=== PATIENT | male | born 1965 | race Two or more races ===

== ENCOUNTER → 2023-04-30 | Outpatient (CLI) | payer OTHER, MEDICAID | END | disposition home or self-care (01) | LOC: XYW 15:35 | PROVIDERS: ATTEND Student in an Organized Health Care Education/Training Program | DX: I51.89 Other ill-defined heart diseases (principal); R00.2 Palpitations; R07.89 Other chest pain | CPT/HCPCS: 93306 ==

== ENCOUNTER → 2023-09-10 | Outpatient (CLI) | payer OTHER, MEDICAID ==
[~2023-09-10] VITALS: Ht 182.9 cm; Wt 136.5 kg
[2023-09-10] MEDS: ADENOSINE 115 MG in GIVE UN-DILUTED 0 ML IV ONE (08:41)
== END | disposition home or self-care (01) ==
LOC: XYW 07:23
PROVIDERS: ATTEND Internal Medicine
DX: I25.9 Chronic ischemic heart disease, unspecified (principal); R00.2 Palpitations; R07.89 Other chest pain; I10 Essential (primary) hypertension; E78.5 Hyperlipidemia, unspecified; E66.01 Morbid (severe) obesity due to excess calories
CPT/HCPCS: 78452; 93017; A9500; J0153

== ENCOUNTER 2024-01-06 10:40 | Day surgery (SDC) | payer OTHER, MEDICAID ==
[2024-01-05 14:54] LABS: Basophils # (auto) 0.1 10 ^3/uL (0-0.2); Basophils % (auto) 0.9 % (0.0-2.0); Eosinophils # (auto) 0.3 10 ^3/uL (0-0.8); Eosinophils % (auto) 3.3 % (0.0-7.0); Hematocrit 44.8 % (41.0-53.0); Hemoglobin 15.3 g/dL (13.5-17.5); Lymphocytes # (auto) 2.5 10 ^3/uL (0.4-5.4); Lymphocytes % (auto) 27.7 % (10.0-50.0); Mean Corpuscular Hemoglobin 32.2 pg (28.0-32.0); Mean Corpuscular Hgb Conc. 34.2 g/dL (32.0-36.0); Mean Corpuscular Volume 94.1 fL (80.0-100.0); Monocytes # (auto) 0.8 10 ^3/uL (0-1.3); Neutrophils # (auto) 5.4 10 ^3/uL (1.6-8.6); Neutrophils % (auto) 59.1 % (37.0-80.0); Nucleated Red Blood Cells % 0.1 %; Red Blood Cells 4.76 10^6/uL (4.5-5.90); Red Cell Distribution Width 12.7 % (11.8-14.3); White Blood Cell 9.1 10^3/uL (4.4-10.8)
[2024-01-05 15:10] LABS: INR 1.08 (0.9-1.15); Partial Thromboplastin Time 26.6 SEC (24.5-34.5); Prothrombin Time 11.4 sec (9.3-11.8)
[2024-01-05 15:33] LABS: Alanine Aminotransferase 63 U/L (7-40); Albumin 4.4 g/dL (3.2-4.8); Alkaline Phosphatase 80 U/L (46-116); Anion Gap 5 (5-15); Aspartate Aminotransferase 30 U/L (13-40); BUN/Creatinine Ratio 12.2 (10.0-20.0); Blood Urea Nitrogen 11 mg/dL (9-23); Calcium 9.9 mg/dL (8.7-10.4); Carbon Dioxide 30 mmol/L (20-30); Chloride 103 mmol/L (98-107); Glucose 100 mg/dL (74-106); Sodium 138 mmol/L (136-145)
[2024-01-05 15:34] LABS: Bilirubin, Total 1.2 mg/dL (0.2-1.0); Total Protein 7.3 g/dL (5.7-8.2)
[~2024-01-06] VITALS: Ht 182.9 cm; Wt 138.3 kg
[2024-01-06] VITALS (7 sets, daily range): BP systolic 105–152; BP diastolic 64–95; PULSE 73–81; RESP 15–20; TEMP 97.8; O2SAT 93–97
[~2024-01-06 10:40] MED LIST: ATOR40TA52 PO; IBUP-1454 PO; LOSA-533 PO; OMEP-434 PO; TAMS-35 PO
[2024-01-06] MEDS ORDERED: HEPARIN SODIUM (PORCINE) 5000 UNITS/ML 1ML VIAL ONE (14:03)
[2024-01-06] MEDS ORDERED: ANGIOMAX 250 MG VIAL IV ONE (14:03)
[2024-01-06] MEDS ORDERED: SODIUM CHL 0.9% 0 ML ONE (14:04)
[2024-01-06] MEDS ORDERED: MIDAZOLAM HCL 2MG/2ML 2ml VIAL (1mg/ml) ONE (14:04)
[2024-01-06] MEDS ORDERED: fentaNYL CITRATE 100 MCG/2 ML VL ONE (14:04)
[2024-01-06] MEDS ORDERED: VERAPAMIL 2.5MG/ML INJ 2ML VIAL IV ONE (14:04)
[2024-01-06] MEDS ORDERED: LIDOCAINE 2%HCL (LOCAL ANESTH.) INJ 20ML MDV ONE (14:04)
== END 2024-01-06 16:35 | disposition home or self-care (01) ==
LOC: CATH 10:40
PROVIDERS: ATTEND Internal Medicine
DX: R94.39 Abnormal result of other cardiovascular function study (principal); I20.9 Angina pectoris, unspecified; Z79.01 Long term (current) use of anticoagulants; Z79.899 Other long term (current) drug therapy
CPT/HCPCS: 36415; 80053; 85025; 85610; 85730; 93458; C1887; C1894; J1644; J2250; J3010; Q9967; 99152

== ENCOUNTER → 2024-05-10 | Outpatient (CLI) | payer OTHER, MEDICAID ==
[2024-05-10 11:10] LABS: Urine Bacteria None Seen /hpf (None Seen)
[2024-05-10 11:41] LABS: Basophils # (auto) 0 10 ^3/uL (0-0.2); Basophils % (auto) 0.3 % (0.0-2.0); Eosinophils # (auto) 0.2 10 ^3/uL (0-0.8); Eosinophils % (auto) 2.8 % (0.0-7.0); Lymphocytes # (auto) 2.2 10 ^3/uL (0.4-5.4); Mean Corpuscular Hemoglobin 33.6 pg (28.0-32.0); Mean Corpuscular Hgb Conc. 35.5 g/dL (32.0-36.0); Mean Corpuscular Volume 94.6 fL (80.0-100.0); Monocytes # (auto) 0.6 10 ^3/uL (0-1.3); Monocytes % (auto) 8.5 % (0.0-12.0); Neutrophils # (auto) 4.4 10 ^3/uL (1.6-8.6); Neutrophils % (auto) 59.4 % (37.0-80.0); Nucleated Red Blood Cells % 0.1 %; Platelet Count (auto) 171 10^3/uL (140-450); Red Blood Cells 4.75 10^6/uL (4.5-5.90); Red Cell Distribution Width 12.9 % (11.8-14.3); White Blood Cell 7.5 10^3/uL (4.4-10.8)
[2024-05-10 11:55] LABS: Alanine Aminotransferase 55 U/L (7-40); Albumin 4.5 g/dL (3.2-4.8); Alkaline Phosphatase 73 U/L (46-116); Anion Gap 6 (5-15); Aspartate Aminotransferase 27 U/L (13-40); BUN/Creatinine Ratio 13.4 (10.0-20.0); Bilirubin, Total 2.1 mg/dL (0.2-1.0); Blood Urea Nitrogen 13 mg/dL (9-23); Calcium 9.9 mg/dL (8.7-10.4); Carbon Dioxide 29 mmol/L (20-31); Chloride 103 mmol/L (98-107); Cholesterol 124 mg/dL (< 200); Glucose 122 mg/dL (74-106); HDL Cholesterol 37 mg/dL (40-59); LDL Cholesterol 70 mg/dL (< 100); Magnesium 2.2 mg/dL (1.6-2.6); Sodium 138 mmol/L (136-145); Total Protein 7.3 g/dL (5.7-8.2); Triglycerides 121 mg/dL (< 150)
[2024-05-10 12:10] LABS: Folate (Folic Acid) 27.72 ng/mL (>5.38)
[2024-05-10 12:30] LABS: Urine Blood Negative /uL (Negative); Urine Clarity Clear (Clear); Urine Color Yellow (Yellow); Urine Mucus FEW (None Seen); Urine Protein, UAD Negative (Negative); Urine Specific Gravity 1.021 (1.001-1.035); Urine Urobilinogen Normal (Negative); Urine WBC 1 /hpf (0 - 3); Urine pH 6.5 (5.0-9.0)
== END | disposition home or self-care (01) ==
LOC: LAB 10:44
PROVIDERS: ATTEND Internal Medicine
DX: R73.03 Prediabetes (principal); K21.9 Gastro-esophageal reflux disease without esophagitis; M54.50 Low back pain, unspecified; K80.50 Calculus of bile duct without cholangitis or cholecystitis without obstruction
CPT/HCPCS: 36415; 80053; 80061; 81001; 82306; 82607; 82746; 83036; 83735; 84443; 84550; 85025; 87086

== ENCOUNTER 2024-05-11 15:42 | Emergency (ER) | payer OTHER, MEDICAID ==
[~2024-05-11] VITALS: Ht 182.9 cm; Wt 135.8 kg
[2024-05-11 18:54] LABS: Basophils # (auto) 0 10 ^3/uL (0-0.2); Basophils % (auto) 0.5 % (0.0-2.0); Eosinophils # (auto) 0.2 10 ^3/uL (0-0.8); Eosinophils % (auto) 1.9 % (0.0-7.0); Hematocrit 48.7 % (41.0-53.0); Hemoglobin 16.7 g/dL (13.5-17.5); Lymphocytes # (auto) 2.6 10 ^3/uL (0.4-5.4); Mean Corpuscular Hemoglobin 32.4 pg (28.0-32.0); Mean Corpuscular Hgb Conc. 34.4 g/dL (32.0-36.0); Mean Corpuscular Volume 94.2 fL (80.0-100.0); Monocytes # (auto) 0.7 10 ^3/uL (0-1.3); Monocytes % (auto) 7.6 % (0.0-12.0); Neutrophils # (auto) 5.4 10 ^3/uL (1.6-8.6); Nucleated Red Blood Cells % 0.1 %; Platelet Count (auto) 191 10^3/uL (140-450); Red Blood Cells 5.17 10^6/uL (4.5-5.90); Red Cell Distribution Width 12.8 % (11.8-14.3); White Blood Cell 8.9 10^3/uL (4.4-10.8)
[2024-05-11 19:07] LABS: Alanine Aminotransferase 63 U/L (7-40); Albumin 5.1 g/dL (3.2-4.8); Alkaline Phosphatase 81 U/L (46-116); Anion Gap 7 (5-15); Aspartate Aminotransferase 31 U/L (13-40); BUN/Creatinine Ratio 10.9 (10.0-20.0); Bilirubin, Total 1.6 mg/dL (0.2-1.0); Blood Urea Nitrogen 11 mg/dL (9-23); Calcium 10.3 mg/dL (8.7-10.4); Carbon Dioxide 29 mmol/L (20-31); Chloride 104 mmol/L (98-107); Lipase 33 U/L (12-53); Potassium 3.7 mmol/L (3.5-5.1); Sodium 140 mmol/L (136-145); Total Protein 8.2 g/dL (5.7-8.2)
[2024-05-11 19:27] LABS: Urine Bacteria None Seen /hpf (None Seen)
[2024-05-11 19:47] LABS: Urine Blood Negative /uL (Negative); Urine Clarity Clear (Clear); Urine Color Light-Yellow (Yellow); Urine Mucus FEW (None Seen); Urine Protein, UAD Negative (Negative); Urine Specific Gravity 1.015 (1.001-1.035); Urine Urobilinogen Normal (Negative); Urine WBC <1 /hpf (0 - 3); Urine pH 6.5 (5.0-9.0)
[2024-05-11 19:49] LABS: Glucose 108 mg/dL (74-106)
[2024-05-11] MEDS ORDERED: TAMS-35 PO (21:50)
[2024-05-11 23:26] VITALS: BP 119/82; PULSE 72; RESP 18; TEMP 98.5; O2SAT 95
== END 2024-05-11 23:31 | disposition home or self-care (01) ==
LOC: ER 15:46
DX: N20.0 Calculus of kidney (principal); M54.9 Dorsalgia, unspecified; Z79.899 Other long term (current) drug therapy
CPT/HCPCS: 36415; 74176; 80053; 81001; 83690; 85025

== ENCOUNTER → 2024-08-17 | Outpatient (CLI) | payer OTHER, MEDICAID ==
[2024-08-17 09:28] LABS: Urine Bacteria None Seen /hpf (None Seen)
[2024-08-17 09:37] LABS: Basophils # (auto) 0 10 ^3/uL (0-0.2); Basophils % (auto) 0.5 % (0.0-2.0); Eosinophils # (auto) 0.2 10 ^3/uL (0-0.8); Eosinophils % (auto) 2.3 % (0.0-7.0); Hematocrit 47.2 % (41.0-53.0); Lymphocytes # (auto) 2.1 10 ^3/uL (0.4-5.4); Lymphocytes % (auto) 28.1 % (10.0-50.0); Mean Corpuscular Hemoglobin 32.3 pg (28.0-32.0); Mean Corpuscular Hgb Conc. 33.9 g/dL (32.0-36.0); Mean Corpuscular Volume 95.2 fL (80.0-100.0); Monocytes # (auto) 0.7 10 ^3/uL (0-1.3); Monocytes % (auto) 8.7 % (0.0-12.0); Neutrophils # (auto) 4.5 10 ^3/uL (1.6-8.6); Neutrophils % (auto) 60.4 % (37.0-80.0); Platelet Count (auto) 168 10^3/uL (140-450); Red Blood Cells 4.95 10^6/uL (4.5-5.90); Red Cell Distribution Width 13.1 % (11.8-14.3); White Blood Cell 7.5 10^3/uL (4.4-10.8)
[2024-08-17 09:41] LABS: Urine Blood Negative /uL (Negative); Urine Clarity Clear (Clear); Urine Color Light-Yellow (Yellow); Urine Protein, UAD Negative (Negative); Urine Specific Gravity 1.015 (1.001-1.035); Urine Squamous Epithelial Cell FEW /hpf (<5); Urine Urobilinogen Normal (Negative); Urine WBC 1 /hpf (0 - 3)
[2024-08-17 10:04] LABS: Albumin 4.3 g/dL (3.2-4.8); Alkaline Phosphatase 78 U/L (46-116); Anion Gap 7 (5-15); Aspartate Aminotransferase 34 U/L (13-40); BUN/Creatinine Ratio 8.7 (10.0-20.0); Blood Urea Nitrogen 9 mg/dL (9-23); Calcium 10.2 mg/dL (8.7-10.4); Carbon Dioxide 30 mmol/L (20-31); Chloride 101 mmol/L (98-107); Cholesterol 133 mg/dL (< 200); LDL Cholesterol 76 mg/dL (< 100); Potassium 4.1 mmol/L (3.5-5.1); Sodium 138 mmol/L (136-145)
[2024-08-17 10:05] LABS: Total Protein 7.3 g/dL (5.7-8.2)
[2024-08-17 10:06] LABS: Alanine Aminotransferase 56 U/L (7-40); Bilirubin, Total 2.4 mg/dL (0.2-1.0); Glucose 131 mg/dL (74-106); HDL Cholesterol 39 mg/dL (40-59); Triglycerides 157 mg/dL (< 150)
== END | disposition home or self-care (01) ==
LOC: LAB 09:16
DX: E79.0 Hyperuricemia without signs of inflammatory arthritis and tophaceous disease (principal); D51.9 Vitamin B12 deficiency anemia, unspecified; E61.2 Magnesium deficiency; E55.9 Vitamin D deficiency, unspecified; R94.4 Abnormal results of kidney function studies; R68.89 Other general symptoms and signs; R73.09 Other abnormal glucose; R82.90 Unspecified abnormal findings in urine
CPT/HCPCS: 36415; 80053; 80061; 81001; 82306; 82746; 83036; 84443; 85025; 87086

== ENCOUNTER → 2024-09-29 | Day surgery (SDC) | payer OTHER, MEDICAID ==
[2024-09-28 11:18] LABS: Urine Bacteria None Seen /hpf (None Seen)
[2024-09-28 11:22] LABS: Basophils # (auto) 0.1 10 ^3/uL (0-0.2); Basophils % (auto) 0.7 % (0.0-2.0); Eosinophils # (auto) 0.1 10 ^3/uL (0-0.8); Eosinophils % (auto) 1.5 % (0.0-7.0); Hematocrit 47.7 % (41.0-53.0); Hemoglobin 15.9 g/dL (13.5-17.5); Lymphocytes % (auto) 22.9 % (10.0-50.0); Mean Corpuscular Hemoglobin 31.5 pg (28.0-32.0); Mean Corpuscular Hgb Conc. 33.4 g/dL (32.0-36.0); Mean Corpuscular Volume 94.6 fL (80.0-100.0); Monocytes # (auto) 0.6 10 ^3/uL (0-1.3); Monocytes % (auto) 7.4 % (0.0-12.0); Neutrophils # (auto) 5.8 10 ^3/uL (1.6-8.6); Neutrophils % (auto) 67.5 % (37.0-80.0); Nucleated Red Blood Cells % 0.1 %; Platelet Count (auto) 179 10^3/uL (140-450); Red Blood Cells 5.05 10^6/uL (4.5-5.90); Red Cell Distribution Width 12.8 % (11.8-14.3); White Blood Cell 8.6 10^3/uL (4.4-10.8)
[2024-09-28 11:38] LABS: INR 1.04 (0.9-1.15); Partial Thromboplastin Time 26.5 SEC (24.5-34.5)
[2024-09-28 11:42] LABS: Urine Blood Negative /uL (Negative); Urine Clarity Clear (Clear); Urine Color Light-Yellow (Yellow); Urine Protein, UAD Negative (Negative); Urine Specific Gravity 1.019 (1.001-1.035); Urine Squamous Epithelial Cell FEW /hpf (<5); Urine Urobilinogen Normal (Negative); Urine WBC 1 /HPF (0-3); Urine pH 6.5 (5.0-9.0)
[2024-09-28 11:49] LABS: Alkaline Phosphatase 84 U/L (46-116); Anion Gap 7 (5-15); Aspartate Aminotransferase 25 U/L (13-40); BUN/Creatinine Ratio 13.8 (10.0-20.0); Blood Urea Nitrogen 13 mg/dL (9-23); Carbon Dioxide 29 mmol/L (20-31); Chloride 103 mmol/L (98-107); Potassium 3.9 mmol/L (3.5-5.1); Sodium 139 mmol/L (136-145)
[2024-09-28 11:50] LABS: Total Protein 7.6 g/dL (5.7-8.2)
[2024-09-28 11:57] LABS: Alanine Aminotransferase 50 U/L (7-40); Albumin 4.9 g/dL (3.2-4.8); Bilirubin, Total 1.3 mg/dL (0.2-1.0); Glucose 125 mg/dL (74-106)
[~2024-09-29] VITALS: Ht 185.4 cm; Wt 137.0 kg
[~2024-09-29] MED LIST changes: +ACETAMINOPHEN IV 1000 MG/100ML (10MG/ML) IV PRN; +CIPR500T4 PO; +DICY-89 PO; +DexAMETHasone SOD PHOS 10MG/1ML VIAL INJ ONE; +HYDROmorphone HCL 2 MG/ML VL/or syr IV PRN; +MEPERIDINE HCL (25 MG/ML) 1ML VIAL IV PRN; +ONDANSETRON HCL 4 MG/2 ML VIAL IV ONE; +ONDANSETRON HCL 4 MG/2 ML VIAL ONE; +PROPOFOL 10 MG/ML 20 ML IV ONE; +ePHEDrine SULFATE 50 MG/ML AMP ONE; +fentaNYL CITRATE 100 MCG/2 ML VL ONE
[2024-09-29] MEDS: CIPROFLOXACIN 400MG/200ML 200 ML IV ONE (12:41)
[2024-09-29 13:05] VITALS: PULSE 82; RESP 12; TEMP 98.3; O2SAT 98
--- NOTE | 2024-09-29 13:21 | DVHDS2 ---
New Physician D'charge PN Admitting Diagnosis Admitting Diagnosis Right renal calculi Discharge Diagnosis Same Operations or Procedures Extracorporeal shockwave lithotripsy Reason(s) For Hospitalization Surgery Treatment Plan Discharge Condition of Discharge Fair Disposition Home Discharge Instructions Diet: Regular Activity: Light activity Activity comment: As tolerated Medications: Given Follow Up Care Follow Up/Referral: Two weeks with [facility] Discharge Statement: "Patient was advised to return to the ER or call 911 if any headaches, di zziness, shortness of breath, chest pain, abdominal pain, bleeding, fevers, or worsening of medical condition. Patient was counseled about treatment plan, medications, possible side effects, patientverbalized understanding. All questions were answered to the best of my ability. This discharge took greater then 30 minutes in planning, reviewing documentation, counseling the patient, and discussing with other team members." PHAN FARFAN MD Sep 29, 2024 13:21
[2024-09-29 13:50] VITALS: BP 130/75; PULSE 66; RESP 17; O2SAT 96
== END | disposition home or self-care (01) ==
LOC: SUR 11:02
PROVIDERS: ATTEND Urology
DX: N20.0 Calculus of kidney (principal); E78.00 Pure hypercholesterolemia, unspecified; Z96.653 Presence of artificial knee joint, bilateral; Z98.890 Other specified postprocedural states
CPT/HCPCS: 36415; 50590; 80053; 81001; 85025; 85610; 85730; 87086; J0744; J1100; J2405; J2704; J3010

== ENCOUNTER 2025-01-11 09:04 | Outpatient (CLI) | payer MEDICAID ==
[~2025-01-11 09:04] MED LIST changes: -ACETAMINOPHEN IV 1000 MG/100ML (10MG/ML) IV PRN; -DexAMETHasone SOD PHOS 10MG/1ML VIAL INJ ONE; -HYDROmorphone HCL 2 MG/ML VL/or syr IV PRN; -MEPERIDINE HCL (25 MG/ML) 1ML VIAL IV PRN; -ONDANSETRON HCL 4 MG/2 ML VIAL IV ONE; -ONDANSETRON HCL 4 MG/2 ML VIAL ONE; -PROPOFOL 10 MG/ML 20 ML IV ONE; -ePHEDrine SULFATE 50 MG/ML AMP ONE; -fentaNYL CITRATE 100 MCG/2 ML VL ONE
[2025-01-11 09:39] LABS: Urine Bacteria None Seen /hpf (None Seen)
[2025-01-11 09:54] LABS: Urine Blood Negative /uL (Negative); Urine Clarity Clear (Clear); Urine Color Yellow (Yellow); Urine Mucus FEW (None Seen); Urine Protein, UAD TRACE (Negative); Urine Specific Gravity 1.025 (1.001-1.035); Urine Squamous Epithelial Cell FEW /hpf (<5); Urine Urobilinogen Normal (Negative); Urine WBC 2 /HPF (0-3)
[2025-01-11 10:11] LABS: Albumin 4.3 g/dL (3.2-4.8); Alkaline Phosphatase 68 U/L (46-116); Anion Gap 8 (5-15); Aspartate Aminotransferase 37 U/L (13-40); Blood Urea Nitrogen 13 mg/dL (9-23); Calcium 9.7 mg/dL (8.7-10.4); Carbon Dioxide 27 mmol/L (20-31); Chloride 107 mmol/L (98-107); Cholesterol 106 mg/dL (< 200); Glucose 103 mg/dL (74-106); Potassium 4.1 mmol/L (3.5-5.1); Sodium 142 mmol/L (136-145); Total Protein 6.9 g/dL (5.7-8.2)
[2025-01-11 10:12] LABS: Alanine Aminotransferase 50 U/L (7-40); Bilirubin, Total 2.4 mg/dL (0.2-1.0); HDL Cholesterol 33 mg/dL (40-59); Triglycerides 157 mg/dL (< 150)
[2025-01-11 10:13] LABS: Basophils # (auto) 0 10 ^3/uL (0-0.2); Basophils % (auto) 0.5 % (0.0-2.0); Eosinophils # (auto) 0.1 10 ^3/uL (0-0.8); Eosinophils % (auto) 1.4 % (0.0-7.0); Hematocrit 43.6 % (41.0-53.0); Hemoglobin 14.6 g/dL (13.5-17.5); Lymphocytes # (auto) 1.9 10 ^3/uL (0.4-5.4); Lymphocytes % (auto) 28.3 % (10.0-50.0); Mean Corpuscular Hemoglobin 31.8 pg (28.0-32.0); Mean Corpuscular Hgb Conc. 33.6 g/dL (32.0-36.0); Mean Corpuscular Volume 94.7 fL (80.0-100.0); Monocytes # (auto) 0.8 10 ^3/uL (0-1.3); Monocytes % (auto) 11.1 % (0.0-12.0); Neutrophils % (auto) 58.7 % (37.0-80.0); Nucleated Red Blood Cells % 0.2 %; Platelet Count (auto) 161 10^3/uL (140-450); Red Cell Distribution Width 12.9 % (11.8-14.3); White Blood Cell 6.8 10^3/uL (4.4-10.8)
[2025-01-11 10:17] LABS: Folate (Folic Acid) 9.44 ng/mL (>5.38); LDL Cholesterol 48 mg/dL (< 100)
[2025-01-11 11:03] LABS: Uric Acid 7.7 mg/dL (3.7-9.2)
== END 2025-01-11 17:00 | disposition home or self-care (01) ==
LOC: LAB 09:04
PROVIDERS: ATTEND Internal Medicine
DX: E78.49 Other hyperlipidemia (principal); E61.2 Magnesium deficiency; R68.89 Other general symptoms and signs; E11.9 Type 2 diabetes mellitus without complications; R94.6 Abnormal results of thyroid function studies; E79.0 Hyperuricemia without signs of inflammatory arthritis and tophaceous disease; R82.998 Other abnormal findings in urine; E55.9 Vitamin D deficiency, unspecified; R82.90 Unspecified abnormal findings in urine; R82.79 Other abnormal findings on microbiological examination of urine; D51.9 Vitamin B12 deficiency anemia, unspecified
CPT/HCPCS: 36415; 80053; 80061; 81001; 82306; 82607; 82746; 83036; 84443; 84550; 85025; 87086

== ENCOUNTER → 2025-01-20 | Day surgery (SDC) | payer MEDICAID ==
[2025-01-13 10:37] LABS: Basophils # (auto) 0 10 ^3/uL (0-0.2); Basophils % (auto) 0.4 % (0.0-2.0); Eosinophils # (auto) 0.1 10 ^3/uL (0-0.8); Eosinophils % (auto) 1.3 % (0.0-7.0); Hematocrit 41.9 % (41.0-53.0); Hemoglobin 14.3 g/dL (13.5-17.5); Lymphocytes # (auto) 1.6 10 ^3/uL (0.4-5.4); Lymphocytes % (auto) 29.4 % (10.0-50.0); Mean Corpuscular Hemoglobin 32.6 pg (28.0-32.0); Mean Corpuscular Hgb Conc. 34.2 g/dL (32.0-36.0); Mean Corpuscular Volume 95.3 fL (80.0-100.0); Monocytes # (auto) 0.5 10 ^3/uL (0-1.3); Monocytes % (auto) 8.4 % (0.0-12.0); Neutrophils # (auto) 3.4 10 ^3/uL (1.6-8.6); Neutrophils % (auto) 60.5 % (37.0-80.0); Nucleated Red Blood Cells % 0.1 %; Platelet Count (auto) 153 10^3/uL (140-450); White Blood Cell 5.6 10^3/uL (4.4-10.8)
[2025-01-13 10:50] LABS: INR 1.06 (0.9-1.15); Partial Thromboplastin Time 26.9 SEC (24.5-34.5); Prothrombin Time 11.2 sec (9.3-11.8)
[2025-01-13 11:24] LABS: Albumin 4.2 g/dL (3.2-4.8); Alkaline Phosphatase 67 U/L (46-116); Anion Gap 7 (5-15); Aspartate Aminotransferase 36 U/L (13-40); BUN/Creatinine Ratio 11.2 (10.0-20.0); Blood Urea Nitrogen 11 mg/dL (9-23); Calcium 9.3 mg/dL (8.7-10.4); Carbon Dioxide 30 mmol/L (20-31); Chloride 104 mmol/L (98-107); Glucose 98 mg/dL (74-106); Sodium 141 mmol/L (136-145); Total Protein 6.8 g/dL (5.7-8.2)
[2025-01-13 11:25] LABS: Alanine Aminotransferase 52 U/L (7-40); Bilirubin, Total 1.7 mg/dL (0.2-1.0)
[~2025-01-20] VITALS: Ht 185.4 cm; Wt 140.2 kg
[~2025-01-20] MED LIST changes: +CALC1TAB92 PO; -CIPR500T4 PO; -DICY-89 PO; +MAGN400T40 OR; +MIDAZOLAM HCL 2MG/2ML 2ml VIAL (1mg/ml) ONE; +MIDAZOLAM HCL 5 MG/ML-1ML VIAL ONE; +OMEG1CAP87 PO; +PROPOFOL 10 MG/ML 20 ML IV ONE; +SEMA0.25 SC; +SODIUM CHLORIDE LOCK 10 ML ONE; +diphenhdrAMINE HCL 50 MG/1 ML VL ONE; +fentaNYL CITRATE 100 MCG/2 ML VL ONE
[2025-01-20] MEDS: LIDOCAINE VISCOUS 2% 15ML UD ONE (11:04)
[2025-01-20 11:10] VITALS: PULSE 79; RESP 14; TEMP 97.7; O2SAT 99
--- NOTE | 2025-01-20 11:21 | DVHOP2 ---
Operative Report DATE OF OPERATION: 01/20/25 PROCEDURE: Upper Endoscopy with biopsy. PREOPERATIVE INDICATION: The patient is a 59 -year-old male undergoing endoscopy for chronic epigastric pain and history of diaphragmatic hernia POSTOPERATIVE DIAGNOSES: 1. Patient had a 1 cm sliding-type hiatal hernia with slightly irregular squamocolumnar junction and no significant erosive esophagitis 2. Mild gastritis otherwise normal examination up to the 2nd and 3rd part of the duodenum PROCEDURE PERFORMED BY: Lauren Leonard GI NURSE: Suzanne SCOPE: Olympus videoendoscope. ASA CLASS: 3 PREOPERATIVE MEDICATIONS: Mac Dr. Jackelin zheng PROCEDURE IN DETAIL: After obtaining an informed consent, the patient was placed on left lateral decubitus position. The patient was then sedated with the above medications. A bite block was placed between his teeth. The endoscope was then passed through the oropharynx, into the esophagus, and through the stomach and pylorus up to the second and third part of the duodenum. The endoscope was then withdrawn. Second and 3rd part of the duodenum and the duodenal bulb were normal. Biopsies were obtained The pre-pyloric area antrum and body showed mild gastritis with hyperemia erythema. Gastric biopsies were obtained. On retroflexion the fundus cardia and angularis were normal. The endoscope was then withdrawn into the distal esophagus Patient had a 1 cm sliding-type hiatal hernia with slightly irregular squamocolumnar junction and no significant erosive esophagitis. GE junction biopsies were obtained. The remaining distal and proximal esophagus and oropharynx were unremarkable The patient tolerated the procedure well without difficulty. COMPLICATIONS : None SPECIMENS: Duodenal biopsies Gastric biopsies GE junction biopsies DISPOSITION: Stable D/C to home PLAN: 1. Await for biopsy result 2. Will place pt on Protonix 40 mg p.o. daily 3. Carafate 1 g p.o. q.h.s. 4. DC aspirin NSAIDs smoking alcohol 5. Lifestyle and dietary modifications for GERD 6. Resume soft mechanical diet advance as tolerated 7. Outpatient follow up with me in 4-6 weeks to review results and discuss further management LAUREN LEONARD MD Jan 20, 2025 11:21
[2025-01-20 11:25] VITALS: BP 133/84; PULSE 78; RESP 15; O2SAT 94
== END | disposition home or self-care (01) ==
LOC: GI 09:19
PROVIDERS: ATTEND Internal Medicine Gastroenterology
DX: R10.13 Epigastric pain (principal); K21.00 Gastro-esophageal reflux disease with esophagitis, without bleeding; K29.50 Unspecified chronic gastritis without bleeding; K44.9 Diaphragmatic hernia without obstruction or gangrene; G89.29 Other chronic pain; F17.200 Nicotine dependence, unspecified, uncomplicated; Z90.49 Acquired absence of other specified parts of digestive tract; Z98.890 Other specified postprocedural states
CPT/HCPCS: 36415; 43239; 80053; 82962; 85025; 85610; 85730; 88305; 88312; 88342; J1200; J2250; J2704; J3010; J7030

== ENCOUNTER 2025-03-29 16:00 | Emergency (ER) | payer MEDICAID ==
[~2025-03-29] VITALS: Ht 182.9 cm; Wt 133.0 kg
[~2025-03-29 16:00] MED LIST changes: -MIDAZOLAM HCL 2MG/2ML 2ml VIAL (1mg/ml) ONE; -MIDAZOLAM HCL 5 MG/ML-1ML VIAL ONE; -PROPOFOL 10 MG/ML 20 ML IV ONE; -SODIUM CHLORIDE LOCK 10 ML ONE; -diphenhdrAMINE HCL 50 MG/1 ML VL ONE; -fentaNYL CITRATE 100 MCG/2 ML VL ONE
[2025-03-29 16:03] VITALS: TEMP 98.2
--- NOTE | 2025-03-29 17:31 | ED.PDOC ---
Musculoskeletal HPI Comments A 59-YEAR-OLD MALE WITH NO SIGNIFICANT PMHX PRESENTS TO THE ED WITH A C/C OF LEFT LOWER BUTTOCK PAIN WITH ASSOCIATED NUMBNESS, TINGLING AND RADIATING LEFT LOWER EXTREMITY PAIN. PATIENT STATES THAT HIS SYMPTOMS HAVE BEEN ONSET FOR THE PAST 2 DAYS WITH NO ALLEVIATING FACTORS. PATIENT NOTES THAT HE WAS ADVISED TO PRESENT TO EMERGENCY DEPARTMENT FROM URGENT CARE FOR A BETTER EVALUATION. PATIENT DENIES ANY RECENT INJURY, BACK PAIN, ABNORMAL PHYSICAL ACTIVITY, OR ANY OTHER ASSOCIATED SYMPTOMS, MODIFIERS AT THIS TIME. PT IS ALERT, ORIENTATION X4 WITH NORMAL GAIT. Chief Complaint: Lower Extremity Time Seen by MD: 17:26 Primary Care Provider: HALINA Garcia Notes: Nurses Notes, Medications, Allergies Allergies: Coded Allergies: NO KNOWN ALLERGIES (Unverified , 09/10/23) Home Meds Reported Medications Semaglutide (Wegovy) 0.25 Mg/0.5 Ml Inj, 0.25 MG SC QWEEKLY, INJ 01/16/25 Magnesium Oxide (MAGNESIUM OXIDE) 400 Mg Tab, 400 MG OR DAILY, TAB 01/16/25 Calcium Carbonate (Calcium) 600 Mg Tab, 600 MG PO DAILY, TAB 01/16/25 [place]-3 Fatty Acids (Fish Oil 500 mg) 1 Cap Cap, 1 CAP PO DAILY, CAP 01/16/25 Omeprazole Magnesium (Omeprazole) 20 Mg Tab, 1 TAB PO DAILY PRN for GERD 01/05/24 Tamsulosin Hcl (Flomax) 0.4 Mg Cap, 1 CAP PO DAILY for BPH 01/05/24 Ibuprofen (Ibuprofen) 600 Mg Tab, 1 TAB PO TIDWM PRN for MODERATE PAIN (4-6 PAIN SCALE) 01/05/24 Losartan Potassium (Losartan Potassium) 25 Mg Tab, 1 TAB PO DAILY for HYPERTENSION 01/05/24 Atorvastatin Calcium (ATORVASTATIN CALCIUM) 40 Mg Tab, 1 TAB PO QPM for HIGH CHOLESTEROL 01/05/24 Information Source: Patient Mode of Arrival: Ambulatory Location: Left Extremity Location: Back, Hip, Thigh, Other (BUTTOCK) Timing: Days Prehospital treatment: None Severity: Moderate Able to Move Extremity: Yes Bear Weight: Fully Pain: Moderate Hand Dominance: Right Mechanism: None Circumstances: Spontaneous Onset of Symptoms: Spontaneous Symptoms: Pain DVT Risk Factors: NONE Last Tetanus: UTD, Unknown Associated signs and symptoms: None Past Medical History PAST MEDICAL HISTORY: HTN Surgical History: Denies all surgeries Family History Family History: Reviewed,noncontributory to illness Social History Smoker: Non-Smoker Alcohol: Denies ETOH Use Drugs: Denies Drug Use Lives In: Home Constitutional: denies: chills, diaphoresis, fatigue, fever, malaise, sweats, weakness, others EENTM: denies: blurred vision, double vision, ear bleeding, ear discharge, ear drainage, ear pain, ear ringing, eye pain, eye redness, hearing loss, mouth pain, mouth swelling, nasal discharge, nose bleeding, nose congestion, nose pain, photophobia, tearing, throat pain, throat swelling, voice changes, others Respiratory: denies: cough, hemoptysis, orthopnea, SOB at rest, shortness of breath, SOB with excertion, stridor, wheezing, others Cardiovascular: denies: chest pain, dizzy spells, diaphoresis, Dyspnea on exertion, edema, irregular heart beat, left arm pain, lightheadedness, palpitations, PND, syncope, others Gastrointestinal: denies: abdomen distended, abdominal pain, blood streaked bowels, constipated, diarrhea, dysphagia, difficulty swallowing, hematemesis, melena, nausea, poor appetite, poor fluid intake, rectal bleeding, rectal pain, vomiting, others Genitourinary: denies: burning, dysuria, flank pain, frequency, hematuria, incontinence, penile discharge, penile sore, pain, testicle pain, testicle swelling, urgency, others Neurological: denies: dizziness, fainting, headache, left sided numbness, left sided weakness, numbness, paresthesia, pre-existing deficit, right sided numbness, right sided weakness, seizure, speech problems, tingling, tremors, weakness, others Musculoskeletal: reports: back pain, muscle pain, others (LEFT GLUTE PAIN); denies: gout, joint pain, joint swelling, muscle stiffness, neck pain Integumetry: denies: bruises, change in color, change in hair/nails, dryness, laceration, lesions, lumps, rash, wounds, others Allergic/Immunocompromised: denies: Difficulty Healing, Frequent Infections, Hives, Itching, others Hematologic/Lymphatic: denies: anemia, blood clots, easy bleeding, easy bruising, swollen glands, others Endocrine: denies: excessive hunger, excessive sweating, excessive thirst, excessive urination, flushing, intolerance to cold, intolerance to heat, unexplained weight gain, unexplained weight loss, others Psychiatric: denies: anxiety, bipolar disorder, depression, hopeless, panic disorder, schizophrenia, sleepless, suicidal, others All Other Systems: Reviewed and Negative Physical Exam General Appearance: No Apparent Distress, Obese HEENT: Normal ENT Inspection, PERRL/EOMI, Pharynx Normal, TMs Normal Neck: Full Range of Motion, Non-Tender, Normal, Normal Inspection Respiratory: Chest Non-Tender, Lungs Clear, No Accessory Muscle Use, No Respiratory Distress, Normal Breath Sounds Cardiovascular: No Edema, No JVD, No Murmur, No Gallop, Normal Peripheral Pulses, Regular Rate/Rhythm Breast Exam: Deferred Gastrointestinal: No Organomegaly, Non Tender, No Pulsatile Mass, Normal Bowel Sounds, Soft Genitalia: Deferred Pelvic: Deferred Rectal: Deferred Extremities: No calf tenderness, Normal capillary refill, Normal inspection, Normal range of motion, Non-tender, No pedal edema Musculoskeletal : Location: Bilateral Extremity Location: Back, Hip, Thigh, Other (NO ERYTHEMA, SWELLING AND DVT SIGNS. ) Apperance: Tenderness: Moderate (TENDERNESS LOWER BACK, NO BONY TENDERNESS, SWELLING, REDNESS AND DEFORMORMITY. ) Neurologic: Alert, short story writer II-XII nml as Tested, No Motor Deficits, Normal Affect, Normal Mood, No Sensory Deficits Cerebellar Function: Normal Reflexes: Normal Skin: Dry, Normal Color, Warm Peripheral Pulses: 2+ carotid (R), 2+ carotid (L), 2+ dorsalis pedis (R), 2+ dorsalis pedis (L) Lymphatic: No Adenopathy Was a procedure done? Was a procedure done?: No Differential Diagnosis EXT Differential Diagnosis: Cellulitis, Fracture, Sprain, Strain, Bursitis, Other (DDD/DJD OF LOWER BACK ) X-Ray, Labs, Meds, VS Vital Signs Date Time Temp Pulse Resp B/P (MAP) Pulse Ox O2 Delivery O2 Flow Rate FiO2 03/29/25 16:03 98.2 89 18 145/77 98 98.2 Current Medications Medications (Trade) Dose Ordered Sig/Erin Route Start Time Stop Time Status Last Admin Ketorolac Tromethamine (Toradol Injection) 60 mg ONCE ONCE IM 03/29/25 17:30 03/29/25 17:31 DC 03/29/25 17:42 X-Ray, Labs, Meds, VS Comment EXTERNAL MEDICAL RECORDS REVIEWED: [NONE] INDEPENDENT HISTORIANS: [NONE] SOCIAL DETERMINANTS OF HEALTH: [NONE] LABS ORDERED: NONE REVIEWED AND INTERPRETED RESULTS: NONE IMAGING ORDERED: LUMBAR SPINE X-RAY:DDD/DJD OF LS-SPINE, READ BY ME, PENDING RADIOLOGIST READING. TREATMENTS ORDERED: TORADOL 60 MG IM PROCEDURES PERFORMED: NONE CRITICAL CARE TIME: NONE I HAVE DISCUSSED THE PATIENT WITH THE ATTENDING PHYSICIAN (BA) AND S/HE AGREES WITH THE PATIENT'S PLAN OF CARE AND DISPOSITION. BASED ON HISTORY OF PRESENT ILLNESS, AND PHYSICAL EXAM, PATIENT WILL BE DISCHARGED HOME. DISCUSSED PLAN FOR DISCHARGE HOME WITH RX [ULTRAM 50MG AND PREDNISONE]. MEDICATION WARNINGS GIVEN. SHARED DECISION MAKING: DISCUSSED WITH PATIENT THAT THEIR WORKUP WAS NORMAL. PATIENT INSTRUCTED TO FOLLOW UP WITH PRIMARY CARE PROVIDER IN 1-2 DAYS FOR RE- EVALUATION OF SYMPTOMS. PATIENT VERBALIZES UNDERSTANDING TO RETURN TO ED FOR NEW OR WORSENING SYMPTOMS OR IF FOLLOW UP WITH PCP CANNOT BE OBTAINED. PATIENT FEELS COMFORTABLE GOING HOME AT THIS TIME. ALL QUESTIONS ADDRESSED AT TIME OF DISCHARGE. Time of 1ST Reevaluation: 18:00 Reevaluation 1ST: Improved Patient Education/Counseling: Diagnosis, Treatment, Need For Follow Up Family Education/Counseling: Diagnosis, Treatment, No Family Present Medical Screening: No EMC Exist At This Time Departure 1 Departure Time of Disposition: 18:20 Impression: Primary Impression: DDD (degenerative disc disease), lumbar Qualified Codes: M51.360 - Other intervertebral disc degeneration, lumbar region with discogenic back pain only Additional Impressions: DJD (degenerative joint disease), lumbar Qualified Codes: M47.26 - Other spondylosis with radiculopathy, lumbar region Lumbar radiculopathy Disposition: 01 HOME / SELF CARE / HOMELESS Condition: Stable Additional Instructions: FOLLOW-UP WITH PCP IN 1 TO 2 DAYS. TAKE MEDICATIONS PRESCRIBED. RETURN TO ED FOR ANY NEW OR WORSENING SYMPTOMS. e-Prescriptions Tramadol HCl (Tramadol HCl) 50 Mg Tab 50 MG PO TID, #24 TAB Prov: RIGO GARCIA 03/29/25 Discharged With: Self Critical Care Note Critical Care Time?: No Stability Stability form required: No Heart Score Heart Score: Heart Score Response (Comments) Value History N/A 0 EKG N/A 0 Age N/A 0 Risk Factors N/A 0 Troponin N/A 0 Total 0 I personally scribed for RIGO GARCIA ([email or web address]) on 03/29/25 at 17:31. Electronically submitted by Joel Ramirez ([email or web address]). I personally scribed for RIGO GARCIA ([email or web address]) on 03/29/25 at 17:32. Electronically submitted by Joel Ramirez ([email or web address]). I personally scribed for RIGO GARCIA ([email or web address]) on 03/29/25 at 17:53. Electronically submitted by Joel Ramirez ([email or web address]). RIGO GARCIA Mar 29, 2025 17:31
[2025-03-29] MEDS: KETOROLAC TROMETH 60MG/2ML VIAL IM ONE (17:42)
--- NOTE | 2025-03-29 17:57 | DVH ---
CLINICAL HISTORY: LOWER BACK PAIN TO LEFT THIGH TECHNIQUE: 2 views of the lumbar spine were obtained. COMPARISON: None FINDINGS: The alignment of the lumbar spine is normal. The vertebral body heights and intervertebral disc space s are maintained. There are scattered endplate osteophytes. No acute fracture or dislocation is seen. IMPRESSION: NO ACUTE RADIOGRAPHIC ABNORMALITY OF THE LUMBAR SPINE.
[2025-03-29] MEDS ORDERED: PRED20TA2 PO (18:01)
[2025-03-29] MEDS ORDERED: TRAM-626 PO (18:01)
[2025-03-29 18:04] VITALS: BP 112/75; PULSE 80; RESP 18; O2SAT 80
== END 2025-03-29 18:08 | disposition home or self-care (01) ==
LOC: ER 16:00
DX: M51.369 Other intervertebral disc degeneration, lumbar region without mention of lumbar back pain or lower extremity pain (principal); M54.16 Radiculopathy, lumbar region; I10 Essential (primary) hypertension; Z79.899 Other long term (current) drug therapy
CPT/HCPCS: 72100; 96372; 99283; J1885

== ENCOUNTER → 2025-04-18 | Outpatient (CLI) | payer MEDICAID ==
[~2025-04-18] MED LIST changes: +PRED20TA2 PO; +TRAM-626 PO
[2025-04-18 11:25] LABS: Urine Protein, UAD Negative (Negative)
[2025-04-18 11:37] LABS: Hematocrit 47.7 % (41.0-53.0); Hemoglobin 16.5 g/dL (13.5-17.5); Mean Corpuscular Hemoglobin 32.1 pg (28.0-32.0); Mean Corpuscular Volume 92.8 fL (80.0-100.0); Nucleated Red Blood Cells % 0.0 %
[2025-04-18 11:55] LABS: Uric Acid 6.8 mg/dL (3.7-9.2)
[2025-04-18 19:12] LABS: Cholesterol 123.0 mg/dL (< 200)
[2025-04-18 19:13] LABS: HDL Cholesterol 37.0 mg/dL (40-59); Triglycerides 156.0 mg/dL (< 150)
[2025-04-19 11:49] LABS: Hepatitis B Surface Antigen Negative (Negative); Hepatitis C Antibody Negative (Negative)
== END | disposition home or self-care (01) ==
LOC: LAB 10:46
PROVIDERS: ATTEND Internal Medicine
DX: R73.03 Prediabetes (principal); K21.9 Gastro-esophageal reflux disease without esophagitis; K76.0 Fatty (change of) liver, not elsewhere classified
CPT/HCPCS: 36415; 80061; 80074; 81001; 82607; 82746; 83036; 84443; 84550; 85025; 87086